=== PATIENT | male | born 1995 | race Caucasian/White ===

== ENCOUNTER → 2016-11-02 | Outpatient (CLI) | payer OTHER | LOC: CAT 14:21 | DX: S09.90XA Unspecified injury of head, initial encounter (principal); X58.XXXA Exposure to other specified factors, initial encounter; Y93.89 Activity, other specified; Y92.89 Other specified places as the place of occurrence of the external cause; Y99.8 Other external cause status ==

== ENCOUNTER → 2016-11-10 | Outpatient (CLI) | payer OTHER ==
--- NOTE | ~2016-11-10 | 24HR ---
[address] [address] 24 HR ELECTROCARDIOGRAM REPORT Name: MARC SERRANO Room #: REG CL [facility]#: [id number] Admission: 11/10/16 Attend Phys: CHAU Camacho Discharge: Date of : [birth year] Date of Service: 11/10/161516 Report #: [id number] THIS REPORT FOR: //name// [facility] Test Date: 2016-11-10 Test Time: 15:17:00 Pat Name: MARC SERRANO Department: Room: Gender: [employer] Estate Associate: : 1995 Requested By: Justin Subramanian Order Number: [id number] Zena NUNEZ: Interpretive Statements [email or web address] [email or web address] 16 16 Epiphany EpiphanyMD /EPI
== END ==
LOC: CV 14:33
DX: R00.2 Palpitations (principal)